=== PATIENT | female | born 1950 | race Caucasian/White ===

== ENCOUNTER → 2021-05-03 | Outpatient (CLI) | payer OTHER ==
[~2021-05-03] MED LIST: AMLODIPINE-BEN1 EAC4 PO; BACTRIM 400-801 EACH PO; CALCIUM CITRATE PO; CRESTOR20 MG PO; KRILL OIL 3001 EACH PO; LEVAQUIN750 MG PO; MULTI VIT PO; NORCO 5-325 TA1 EACH PO; TOPROL XL50 MG PO; VENTOLIN HFA 66.7 GM INH; VIT D3 PO
== END ==
LOC: KOH-I 10:49
DX: F17.210 Nicotine dependence, cigarettes, uncomplicated (principal); R91.8 Other nonspecific abnormal finding of lung field
CPT/HCPCS: 71271

== ENCOUNTER → 2021-05-07 | Outpatient (CLI) | payer OTHER | LOC: MAMO 13:18 | DX: Z12.31 Encounter for screening mammogram for malignant neoplasm of breast (principal) | CPT/HCPCS: 77063; 77067 ==